=== PATIENT | female | born 1960 | race Caucasian/White ===

== ENCOUNTER 2019-04-01 11:11 | Outpatient (RCR) | payer OTHER, SELFPAY ==
[2019-01-10 16:58] LABS: INR 2.9; Prothrombin Time 29.7 Seconds (11.1-14.7)
[2019-01-21 11:27] LABS: INR 3.8; Prothrombin Time 36.6 Seconds (11.1-14.7)
[2019-02-18 11:39] LABS: INR 3.4; Prothrombin Time 33.5 Seconds (11.1-14.7)
[2019-03-04 10:17] LABS: Basophils Percent Auto 0.6 % (0.2-1.2); Eosinophils Absolute Auto 0.1 K/mm3 (0-0.3); Eosinophils Percent Auto 2.3 % (0-4.4); Hematocrit 40.5 % (37.0-47.0); Hemoglobin 13.4 g/dL (12.0-15.0); Immature Granulocyte Absolute 0.01 K/mm3 (0.00-0.031); Immature Granulocyte Percent A 0.2 % (0-0.5); Lymphocytes Absolute Auto 1.75 K/mm3 (0.9-3.2); Lymphocytes Percent Auto 33.5 % (18.3-44.2); Mean Corpuscular HGB Conc 33.1 g/dl (32-36); Mean Corpuscular Volume 87.7 fl (80-100); Mean Platelet Volume 10.4 fl (7.4-10.4); Monocytes Absolute Auto 0.6 K/mm3 (0.1-0.6); Monocytes Percent Auto 10.5 % (2.6-8.5); Neutrophils Absolute Auto 2.8 K/mm3 (1.3-6.7); Neutrophils Percent Auto 52.9 % (45.5-73.1); Platelet Count Result 195 k/mm3 (150-375); Red Blood Count 4.62 M/mm3 (4.2-5.4); Red Cell Distribution Width 12.9 % (11.5-14.5); White Blood Count 5.2 K/mm3 (4.5-10.0)
[2019-03-04 10:23] LABS: INR 1.6
[2019-03-04 10:30] LABS: Alanine Aminotransferase 45 U/L (4-35); Albumin Level 4.2 g/dL (3.5-5.1); Alkaline Phosphatase 60 U/L (38-126); Aspartate Amino Transferase 44 U/L (14-36); Bilirubin,Total 0.3 mg/dL (0.2-1.3); Blood Urea Nitrogen 14 mg/dL (7-17); Calcium 9.2 mg/dL (8.4-10.2); Carbon Dioxide 26 mmol/L (22-30); Chloride 102 mmol/L (98-107); Estimated Glomerular Filt Rate > 60; Glucose 121 mg/dL (65-105); Sodium 138 mmol/L (137-145)
[2019-03-04 11:01] LABS: Free T4 Free Thyroxine 0.95 ng/mL (0.78-2.19)
[2019-03-09 08:07] LABS: Basophils Percent Auto 0.5 % (0.2-1.2); Eosinophils Absolute Auto 0.1 K/mm3 (0-0.3); Eosinophils Percent Auto 1.7 % (0-4.4); Hematocrit 42.1 % (37.0-47.0); Hemoglobin 13.7 g/dL (12.0-15.0); Immature Granulocyte Absolute 0.02 K/mm3 (0.00-0.031); Immature Granulocyte Percent A 0.3 % (0-0.5); Lymphocytes Absolute Auto 1.56 K/mm3 (0.9-3.2); Lymphocytes Percent Auto 27.2 % (18.3-44.2); Mean Corpuscular HGB Conc 32.5 g/dl (32-36); Mean Platelet Volume 10.6 fl (7.4-10.4); Monocytes Absolute Auto 0.7 K/mm3 (0.1-0.6); Neutrophils Absolute Auto 3.3 K/mm3 (1.3-6.7); Neutrophils Percent Auto 58.3 % (45.5-73.1); Platelet Count Result 182 k/mm3 (150-375); Red Blood Count 4.73 M/mm3 (4.2-5.4); White Blood Count 5.7 K/mm3 (4.5-10.0)
[2019-03-09 08:22] LABS: Alanine Aminotransferase 52 U/L (4-35); Albumin Level 4.4 g/dL (3.5-5.1); Alkaline Phosphatase 67 U/L (38-126); Aspartate Amino Transferase 48 U/L (14-36); Bilirubin,Total 0.3 mg/dL (0.2-1.3); Blood Urea Nitrogen 15 mg/dL (7-17); Calcium 9.4 mg/dL (8.4-10.2); Carbon Dioxide 26 mmol/L (22-30); Chloride 103 mmol/L (98-107); Estimated Glomerular Filt Rate > 60; Glucose 99 mg/dL (65-105); Potassium 4.2 mmol/L (3.4-5.0); Sodium 137 mmol/L (137-145)
[2019-03-09 08:24] LABS: INR 3.6; Prothrombin Time 35.7 Seconds (11.1-14.7)
--- NOTE | ~2019-04-01 | XR_ITS ---
EXAMINATION: XR chest 2V 03/04/2019 10:06 INDICATION: Weight loss. Tobacco use. PROCEDURE: 2 view chest COMPARISON: 12/28/2012 FINDINGS: The lungs are clear. 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 The lungs are hyperinflated which is consistent with, but not diagnostic of chronic obstructive pulmonary disease. The cardiomediastinal silhouette is within normal limits. There are no pleural e ffusions. There is no pneumothorax suspected. IMPRESSION: 1: NO ACUTE CARDIOPULMONARY DISEASE. Reviewed, dictated and finalized at location A. [employer]
[2019-04-01 11:43] LABS: Alanine Aminotransferase 33 U/L (4-35); Aspartate Amino Transferase 38 U/L (14-36)
[2019-04-01 11:44] LABS: Prothrombin Time 30.5 Seconds (11.1-14.7)
== END 2019-04-10 23:59 | disposition home or self-care (01) ==
LOC: ANHLAB 11:11
PROVIDERS: PCP Internal Medicine Cardiovascular Disease; Visit Provider Internal Medicine Cardiovascular Disease
DX: Z51.81 Encounter for therapeutic drug level monitoring (principal); Z79.01 Long term (current) use of anticoagulants; Z95.2 Presence of prosthetic heart valve
CPT/HCPCS: 36415; 71046; 80053; 84439; 84443; 84450; 84460; 85025; 85610

== ENCOUNTER 2019-10-07 09:50 | Outpatient (RCR) | payer OTHER, SELFPAY ==
[2019-07-29 13:20] LABS: INR 4.1; Prothrombin Time 38.8 Seconds (11.1-14.7)
[2019-08-01 17:27] LABS: Prothrombin Time 58.3 Seconds (11.1-14.7)
[2019-08-01 18:17] LABS: INR 6.8
[2019-08-04 07:56] LABS: INR 1.4; Prothrombin Time 17.1 Seconds (11.1-14.7)
[2019-08-07 08:22] LABS: INR 1.8
[2019-08-10 08:05] LABS: Prothrombin Time 30.8 Seconds (11.1-14.7)
[2019-08-17 17:46] LABS: INR 3.9
[2019-08-28 08:44] LABS: Prothrombin Time 30.6 Seconds (11.1-14.7)
[2019-10-07 10:16] LABS: INR 3.6; Prothrombin Time 35.4 Seconds (11.1-14.7)
== END 2019-10-27 23:59 | disposition home or self-care (01) ==
LOC: ANHLAB 09:50
PROVIDERS: PCP Internal Medicine Cardiovascular Disease; Visit Provider Internal Medicine Cardiovascular Disease
DX: Z51.81 Encounter for therapeutic drug level monitoring (principal); Z95.2 Presence of prosthetic heart valve; Z79.01 Long term (current) use of anticoagulants
CPT/HCPCS: 36415; 85610

== ENCOUNTER 2019-10-28 10:11 | Outpatient (RCR) | payer OTHER, SELFPAY ==
[2019-10-28 10:40] LABS: INR 3.7
== END 2020-01-26 23:59 | disposition home or self-care (01) ==
LOC: ANHLAB 10:11
PROVIDERS: PCP Internal Medicine Cardiovascular Disease; Visit Provider Internal Medicine Cardiovascular Disease
DX: Z51.81 Encounter for therapeutic drug level monitoring (principal); Z95.2 Presence of prosthetic heart valve; Z79.01 Long term (current) use of anticoagulants
CPT/HCPCS: 36415; 85610

== ENCOUNTER 2020-05-11 11:29 | Outpatient (RCR) | payer OTHER, SELFPAY ==
[2020-02-19 15:47] LABS: INR 4.7; Prothrombin Time 44.8 Seconds (11.1-14.7)
[2020-02-26 08:12] LABS: INR 3.2; Prothrombin Time 33.2 Seconds (11.1-14.7)
[2020-03-23 12:13] LABS: INR 2.5; Prothrombin Time 27.5 Seconds (11.1-14.7)
[2020-05-11 12:51] LABS: INR 2.9; Prothrombin Time 31.2 Seconds (11.1-14.7)
== END 2020-05-19 23:59 | disposition home or self-care (01) ==
LOC: ANHLAB 11:29
PROVIDERS: Visit Provider Internal Medicine Cardiovascular Disease
DX: Z95.2 Presence of prosthetic heart valve (principal)
CPT/HCPCS: 36415; 85610

== ENCOUNTER 2020-09-20 09:32 | Outpatient (RCR) | payer OTHER, SELFPAY ==
[2020-06-22 11:22] LABS: INR 1.9; Prothrombin Time 22.2 Seconds (11.1-14.7)
[2020-06-26 07:52] LABS: INR 3.5; Prothrombin Time 35.9 Seconds (11.1-14.7)
[2020-07-13 11:17] LABS: INR 3.1; Prothrombin Time 32.2 Seconds (11.1-14.7)
[2020-08-12 16:25] LABS: INR 2.6; Prothrombin Time 28.4 Seconds (11.1-14.7)
[2020-08-31 10:44] LABS: Prothrombin Time 23.3 Seconds (11.1-14.7)
[2020-09-05 08:14] LABS: INR 3.5; Prothrombin Time 34.1 Seconds (11.1-14.7)
[2020-09-11 07:52] LABS: INR 4.8; Prothrombin Time 43.4 Seconds (11.1-14.7)
[2020-09-13 08:53] LABS: INR 2.8
[2020-09-20 10:00] LABS: INR 3.1; Prothrombin Time 31.4 Seconds (11.1-14.7)
== END 2020-09-20 23:59 | disposition home or self-care (01) ==
LOC: ANHLAB 09:32
PROVIDERS: Visit Provider Internal Medicine Cardiovascular Disease
DX: Z95.2 Presence of prosthetic heart valve (principal)
CPT/HCPCS: 36415; 85610

== ENCOUNTER 2020-11-02 09:08 | Outpatient (CLI) | payer OTHER, SELFPAY ==
[2020-11-02 09:45] LABS: INR 4.1; Prothrombin Time 38.3 Seconds (11.1-14.7)
== END 2020-11-02 09:09 | disposition home or self-care (01) ==
LOC: ANHLAB 09:10
PROVIDERS: Visit Provider Internal Medicine Cardiovascular Disease
DX: Z95.2 Presence of prosthetic heart valve (principal)
CPT/HCPCS: 36415; 85610

== ENCOUNTER 2021-02-07 07:25 | Outpatient (RCR) | payer SELFPAY ==
[2020-11-29 16:56] LABS: Prothrombin Time 37.9 Seconds (11.1-14.7)
[2020-12-06 08:15] LABS: INR 3.8; Prothrombin Time 36.3 Seconds (11.1-14.7)
[2020-12-14 11:26] LABS: INR 4.2; Prothrombin Time 38.9 Seconds (11.1-14.7)
[2021-01-04 08:46] LABS: INR 2.6; Prothrombin Time 27.5 Seconds (11.1-14.7)
[2021-01-22 14:41] LABS: INR 1.6; Prothrombin Time 18.4 Seconds (11.1-14.7)
[2021-01-24 07:49] LABS: INR 2.4; Prothrombin Time 25.7 Seconds (11.1-14.7)
[2021-01-27 09:01] LABS: INR 4.4; Prothrombin Time 40.4 Seconds (11.1-14.7)
[2021-01-31 10:09] LABS: INR 1.7; Prothrombin Time 19.2 Seconds (11.1-14.7)
[2021-02-03 07:40] LABS: INR 2.6; Prothrombin Time 27.1 Seconds (11.1-14.7)
[2021-02-07 08:29] LABS: INR 2.9; Prothrombin Time 29.3 Seconds (11.1-14.7)
== END 2021-02-27 23:59 | disposition home or self-care (01) ==
LOC: ANHLAB 07:25
PROVIDERS: Visit Provider Internal Medicine Cardiovascular Disease
DX: Z95.2 Presence of prosthetic heart valve (principal)
CPT/HCPCS: 36415; 85610

== ENCOUNTER 2021-03-25 10:12 | Outpatient (CLI) | payer OTHER, SELFPAY ==
--- NOTE | 2021-03-25 11:00 | NEURO_ITS ---
Impression: # Complains of numbness and pain. # Mild sensory neuropathy. # No Carpal Tunnel Syndrome or ulnar neuropathy. # Normal needle/EMG exam. # Clinical correlation recommended. Nerve Conduction Studies Anti Sensory Summary Table Stim Site NR Peak (ms) P-T Amp (?V) Site1 Site2 Delta-P (ms) Dist (cm) Huy (m/s) Left Median Anti Sensory (2-3nd Digit) Wrist 3.4 60.9 Wrist 2-3nd Digit 3.4 14.0 41 Wrist 3.4 45.1 Wrist 2-3nd Digit 3.4 14.0 41 Right Median Anti Sensory (2-3nd Digit) Wrist 3.3 68.4 Wrist 2-3nd Digit 3.3 14.0 42 Wrist 3.3 55.7 Wrist 2-3nd Digit 3.3 14.0 42 Left Radial Anti Sensory (Base 1st Digit) Wrist 1.9 28.1 Wrist Base 1st Digit 1.9 0.0 Right Radial Anti Sensory (Base 1st Digit) Wrist 2.2 36.5 Wrist Base 1st Digit 2.2 0.0 Left Ulnar Anti Sensory (5th Digit) Wrist 2.7 25.0 Wrist 5th Digit 2.7 14.0 52 Right Ulnar Anti Sensory (5th Digit) Wrist 2.4 49.6 Wrist 5th Digit 2.4 14.0 58 Motor Summary Table Stim Site NR Onset (ms) O-P Amp (mV) Site1 Site2 Delta-0 (ms) Dist (cm) Huy (m/s) Left Median Motor (Abd Poll Brev) Wrist 3.3 2.8 Elbow Wrist 4.6 26.0 57 Elbow 7.9 3.9 Right Median Motor (Abd Poll Brev) Wrist 3.0 4.5 Elbow Wrist 4.6 25.0 54 Elbow 7.6 4.8 Left Ulnar Motor (Abd Dig Minimi) Wrist 2.9 6.5 A Elbow Wrist 4.8 28.0 58 A Elbow 7.7 5.1 Right Ulnar Motor (Abd Dig Minimi) Wrist 2.7 5.7 A Elbow Wrist 4.6 26.0 57 A Elbow 7.3 5.3 F Wave Studies NR F-Lat (ms) L-R F-Lat (ms) Left Median (Mrkrs) (Abd Poll Brev) 25.23 0.38 Right Median (Mrkrs) (Abd Poll Brev) 25.61 0.38 Left Ulnar (Mrkrs) (Abd Dig Min) 25.18 0.30 Right Ulnar (Mrkrs) (Abd Dig Min) 24.88 0.30 EMG Side Muscle Nerve Root Ins Act Fibs Amp Dur Recrt Comment Right 1stDorInt Ulnar C8-T1 Nml Nml Nml Nml Nml Right Ext Indicis Radial (Post Int) C7-8 Nml Nml Nml Nml Nml Right Ext Digitorum Radial (Post Int) C7-8 Nml Nml Nml Nml Nml Right BrachioRad Radial C5-6 Nml Nml Nml Nml Nml Right PronatorTeres Median C6-7 Nml Nml Nml Nml Nml Right Abd Poll Brev Median C8-T1 Nml Nml Nml Nml Nml Left 1stDorInt Ulnar C8-T1 Nml Nml Nml Nml Nml Left Ext Indicis Radial (Post Int) C7-8 Nml Nml Nml Nml Nml Left Ext Digitorum Radial (Post Int) C7-8 Nml Nml Nml Nml Nml Left BrachioRad Radial C5-6 Nml Nml Nml Nml Nml Left PronatorTeres Median C6-7 Nml Nml Nml Nml Nml Left Abd Poll Brev Median C8-T1 Nml Nml Nml Nml Nml MTDD
== END 2021-03-25 10:13 | disposition home or self-care (01) ==
PROVIDERS: PCP Family Medicine; Visit Provider Family Medicine
DX: G56.00 Carpal tunnel syndrome, unspecified upper limb (principal); G62.9 Polyneuropathy, unspecified
CPT/HCPCS: 95886; 95911

== ENCOUNTER 2021-08-19 16:33 | Outpatient (RCR) | payer OTHER, SELFPAY ==
[2021-05-27 18:15] LABS: INR 2.7; Prothrombin Time 27.7 Seconds (11.1-14.7)
[2021-07-12 09:50] LABS: INR 3.6
[2021-08-19 18:13] LABS: INR 2.3; Prothrombin Time 24.7 Seconds (11.1-14.7)
== END 2021-08-25 23:59 | disposition home or self-care (01) ==
LOC: ANHLAB 16:33
PROVIDERS: PCP Family Medicine; Visit Provider Internal Medicine Cardiovascular Disease
DX: I38 Endocarditis, valve unspecified (principal)
CPT/HCPCS: 36415; 85610

== ENCOUNTER 2021-12-30 15:02 | Outpatient (RCR) | payer OTHER, SELFPAY ==
[2021-10-09 17:00] LABS: Prothrombin Time 30.5 Seconds (11.1-14.7)
[2021-12-20 10:06] LABS: INR 2.1; Prothrombin Time 22.6 Seconds (11.1-14.7)
[2021-12-30 15:55] LABS: INR 2.8; Prothrombin Time 28.3 Seconds (11.1-14.7)
== END 2022-01-07 23:59 | disposition home or self-care (01) ==
LOC: ANHLAB 15:02
PROVIDERS: PCP Family Medicine; Visit Provider Internal Medicine Cardiovascular Disease
DX: I38 Endocarditis, valve unspecified (principal)
CPT/HCPCS: 36415; 85610

== ENCOUNTER 2022-04-27 09:39 | Outpatient (CLI) | payer OTHER, SELFPAY ==
[2022-04-27 10:24] LABS: INR 1.6; Prothrombin Time 18.1 Seconds (11.1-14.7)
[2022-04-27 10:32] LABS: Alanine Aminotransferase 31 U/L (6-35); Albumin Level 4.4 g/dL (3.5-5.1); Alkaline Phosphatase 79 U/L (38-126); Anion Gap 3 mmol/L (8-16); Aspartate Amino Transferase 37 U/L (14-36); Bilirubin,Total 0.4 mg/dL (0.2-1.3); Blood Urea Nitrogen 14 mg/dL (7-17); Calcium 8.9 mg/dL (8.4-10.2); Carbon Dioxide 31 mmol/L (22-30); Chloride 103 mmol/L (98-107); Cholesterol 257 mg/dL (0-200); Estimated Glomerular Filt Rate > 60; Glucose 90 mg/dL (65-110); HDL Direct 43 mg/dL; Potassium 4.4 mmol/L (3.4-5.0); Sodium 137 mmol/L (137-145); Triglycerides 195 mg/dL (<150)
[2022-04-27 10:43] LABS: LDL Cholesterol Direct 140 mg/dL
== END 2022-04-27 09:40 | disposition home or self-care (01) ==
LOC: ANHLAB 09:40
PROVIDERS: PCP Family Medicine; Visit Provider Internal Medicine Cardiovascular Disease
DX: E78.5 Hyperlipidemia, unspecified (principal); Z95.2 Presence of prosthetic heart valve
CPT/HCPCS: 36415; 80053; 80061; 85610

== ENCOUNTER 2022-05-06 07:32 | Outpatient (CLI) | payer OTHER, SELFPAY ==
[2022-05-06 08:02] LABS: INR 2.1
== END 2022-05-06 07:33 | disposition home or self-care (01) ==
LOC: ANHLAB 07:33
PROVIDERS: PCP Family Medicine; Visit Provider Internal Medicine Cardiovascular Disease
DX: Z95.2 Presence of prosthetic heart valve (principal)
CPT/HCPCS: 36415; 85610

== ENCOUNTER 2022-05-19 13:55 | Outpatient (RCR) | payer OTHER, SELFPAY ==
[2022-02-21 10:07] LABS: INR 2.3; Prothrombin Time 24.6 Seconds (11.1-14.7)
== END 2022-05-22 23:59 | disposition home or self-care (01) ==
LOC: ANHLAB 13:55
PROVIDERS: PCP Family Medicine; Visit Provider Internal Medicine Cardiovascular Disease
DX: I38 Endocarditis, valve unspecified (principal)
CPT/HCPCS: 36415; 85610

== ENCOUNTER 2022-05-26 07:44 | Outpatient (CLI) | payer OTHER, SELFPAY ==
[2022-05-26 08:18] LABS: Alanine Aminotransferase 33 U/L (6-35); Albumin Level 4.5 g/dL (3.5-5.1); Alkaline Phosphatase 81 U/L (38-126); Anion Gap 5 mmol/L (8-16); Aspartate Amino Transferase 38 U/L (14-36); Bilirubin,Total 0.5 mg/dL (0.2-1.3); Blood Urea Nitrogen 18 mg/dL (7-17); Calcium 9.1 mg/dL (8.4-10.2); Carbon Dioxide 29 mmol/L (22-30); Chloride 107 mmol/L (98-107); Cholesterol 201 mg/dL (0-200); Estimated Glomerular Filt Rate > 60; Glucose 110 mg/dL (65-110); HDL Direct 53 mg/dL; Potassium 4.4 mmol/L (3.4-5.0); Sodium 141 mmol/L (137-145); Triglycerides 79 mg/dL (<150)
[2022-05-26 08:29] LABS: LDL Cholesterol Direct 108 mg/dL
== END 2022-05-26 07:45 | disposition home or self-care (01) ==
LOC: ANHLAB 07:45
PROVIDERS: PCP Family Medicine; Visit Provider Internal Medicine Cardiovascular Disease
DX: E78.5 Hyperlipidemia, unspecified (principal)
CPT/HCPCS: 36415; 80053; 80061

== ENCOUNTER 2022-07-25 08:36 | Outpatient (RCR) | payer OTHER, SELFPAY ==
[2022-06-13 10:08] LABS: INR 2.8; Prothrombin Time 28.6 Seconds (11.1-14.7)
[2022-07-25 09:11] LABS: INR 3.6; Prothrombin Time 39.1 Seconds (11.1-14.7)
== END 2022-08-17 23:59 | disposition home or self-care (01) ==
LOC: ANHLAB 08:36
PROVIDERS: PCP Family Medicine; Visit Provider Internal Medicine Cardiovascular Disease
DX: Z51.81 Encounter for therapeutic drug level monitoring (principal); Z79.01 Long term (current) use of anticoagulants
CPT/HCPCS: 36415; 85610

== ENCOUNTER 2022-11-07 09:13 | Outpatient (RCR) | payer OTHER, SELFPAY ==
[2022-08-22 09:18] LABS: INR 3.6; Prothrombin Time 38.9 Seconds (11.1-14.7)
[2022-09-05 09:31] LABS: INR 1.6; Prothrombin Time 20.4 Seconds (11.1-14.7)
[2022-09-12 09:05] LABS: INR 2.4; Prothrombin Time 27.7 Seconds (11.1-14.7)
[2022-09-19 10:12] LABS: INR 2.8; Prothrombin Time 31.6 Seconds (11.1-14.7)
[2022-10-03 09:41] LABS: INR 3.6; Prothrombin Time 38.8 Seconds (11.1-14.7)
[2022-10-17 09:14] LABS: INR 3.5; Prothrombin Time 38.3 Seconds (11.1-14.7)
[2022-11-07 10:20] LABS: INR 4.1; Prothrombin Time 42.9 Seconds (11.1-14.7)
== END 2022-11-20 23:59 | disposition home or self-care (01) ==
LOC: ANHLAB 09:13
PROVIDERS: PCP Family Medicine; Visit Provider Internal Medicine Cardiovascular Disease
DX: Z51.81 Encounter for therapeutic drug level monitoring (principal); Z79.01 Long term (current) use of anticoagulants
CPT/HCPCS: 36415; 85610

== ENCOUNTER 2022-12-08 15:32 | Outpatient (CLI) | payer OTHER, SELFPAY ==
--- NOTE | 2022-12-08 15:37 | ECHO_ITS ---
Patient Info Name: Sada Feliz Age: 62 years : 1960 Gender: Female Ht: 64 in Wt: 100 lbs BSA: 1.42 m2 HR: 65 bpm BP: 103 / 83 mmHg Heart Rhythm: Sinus Rhythm Technical Quality: Good Exam Date: 12/08/2022 3:41 PM Exam Location: [facility] Patient Status: Outpatient Admit Date: 12/08/2022 Staff Ordering Physician: Dalton Prado DO [employer] Operator: Daniel York RDCS Attending Provider: Dalton Prado DO Referring Physician: Johan RUBIN; Exam Type: CA echo doppler color flow Study Info Indications - presence of prosthatic heart valve Complete two-dimensional, color flow and Doppler transthoracic echocardiogram is performed. Summary 1. Complete two-dimensional, color flow and Doppler transthoracic echocardiogram is performed. 2. Left ventricular chamber dimension is normal. 3. Left ventricular systolic function is normal, estimated at 65-70%. 4. The left ventricular diastolic function is abnormal. 5. E/e' 26 is elevated. 6. There is mild aortic valve sclerosis. 7. There is trace aortic valve regurgitation. 8. Statistical Programmer mitral valve is not well seen. 9. There is no stenosis of the mechanical mitral valve based on no transvalvular turbulent flow. Gradients, velocity and valve area were not assessed. 10. There is trace regurgitation of the mechanical mitral valve. 11. There is trace tricuspid valve regurgitation. 12. No pulmonary hypertension, estimated pulmonary arterial systolic pressure is 23 mmHg. 13. There is trace pulmonic regurgitation. Left Ventricle E/e' 26 is elevated. Left ventricular chamber dimension is normal. Left ventricular systolic function is normal, estimated at 65-70%. The left ventricular diastolic function is abnormal. Right Ventricle Right ventricular chamber dimension is normal. Right ventricular systolic function is normal and with normal TAPSE 3.5 cm. Left Atria Left atrial chamber dimension is normal. Right Atria Right atrial chamber dimension is normal. Aortic Valve The aortic valve is trileaflet. There is mild aortic valve sclerosis. There is no aortic valve stenosis. There is trace aortic valve regurgitation. Pulmonic Valve There is trace pulmonic regurgitation. Mitral Valve There is no stenosis of the mechanical mitral valve based on no transvalvular turbulent flow. Gradients, velocity and valve area were not assessed. There is trace regurgitation of the mechanical mitral valve. Statistical Programmer mitral valve is not well seen. Tricuspid Valve There is trace tricuspid valve regurgitation. No pulmonary hypertension, estimated pulmonary arterial systolic pressure is 23 mmHg. Pericardium/Pleural There is no pericardial effusion. Inferior Vena Cava Normal inferior vena cava with >50% collapse upon inspiration consistent with normal right atrial pressure, 5 mmHg. Aorta The aortic root size at the sinus of Valsalva is normal. Left Ventricular Outflow Tract Name Value Normal LVOT 2D LVOT Diameter 1.9 cm LVOT Doppler LVOT Peak Gradient 6 mmHg LVOT Mean Gradient 3 mmHg LVOT VTI 33 cm LVOT VTI/AV VTI Ratio 0.8 LVOT
== END 2022-12-08 15:33 | disposition home or self-care (01) ==
LOC: ANHCARD 15:33
PROVIDERS: PCP Family Medicine; Visit Provider Internal Medicine Cardiovascular Disease
DX: I35.8 Other nonrheumatic aortic valve disorders (principal); I35.1 Nonrheumatic aortic (valve) insufficiency; I34.0 Nonrheumatic mitral (valve) insufficiency; I07.1 Rheumatic tricuspid insufficiency; I37.1 Nonrheumatic pulmonary valve insufficiency; R93.1 Abnormal findings on diagnostic imaging of heart and coronary circulation; Z95.2 Presence of prosthetic heart valve
CPT/HCPCS: 93306

== ENCOUNTER 2023-01-29 10:45 | Outpatient (RCR) | payer OTHER, SELFPAY ==
[2022-11-21 09:24] LABS: INR 3.7
[2022-12-12 09:12] LABS: INR 3.9; Prothrombin Time 41.7 Seconds (11.1-14.7)
[2023-01-02 09:00] LABS: INR 3.2; Prothrombin Time 34.8 Seconds (11.1-14.7)
[2023-01-29 11:17] LABS: INR 2.5; Prothrombin Time 29.2 Seconds (11.1-14.7)
== END 2023-02-19 23:59 | disposition home or self-care (01) ==
LOC: ANHLAB 10:45
PROVIDERS: PCP Family Medicine; Visit Provider Internal Medicine Cardiovascular Disease
DX: Z51.81 Encounter for therapeutic drug level monitoring (principal); Z79.01 Long term (current) use of anticoagulants
CPT/HCPCS: 36415; 85610

== ENCOUNTER 2023-05-29 10:15 | Outpatient (RCR) | payer OTHER, SELFPAY ==
[2023-03-06 10:10] LABS: INR 3.8; Prothrombin Time 41.2 Seconds (11.1-14.7)
[2023-04-17 10:07] LABS: INR 4.4; Prothrombin Time 46.4 Seconds (11.1-14.7)
[2023-05-29 11:31] LABS: INR 3.4; Prothrombin Time 37.1 Seconds (11.1-14.7)
== END 2023-06-04 23:59 | disposition home or self-care (01) ==
LOC: ANHLAB 10:15
PROVIDERS: PCP Family Medicine; Visit Provider Internal Medicine Cardiovascular Disease
DX: Z51.81 Encounter for therapeutic drug level monitoring (principal); Z79.01 Long term (current) use of anticoagulants
CPT/HCPCS: 36415; 85610

== ENCOUNTER 2023-05-29 10:16 | Outpatient (CLI) | payer OTHER, SELFPAY ==
[2023-05-29 11:32] LABS: Alanine Aminotransferase 21 U/L (6-35); Alkaline Phosphatase 71 U/L (38-126); Anion Gap 2 mmol/L (8-16); Aspartate Amino Transferase 31 U/L (14-36); Bilirubin,Total 0.5 mg/dL (0.2-1.3); Blood Urea Nitrogen 13 mg/dL (7-17); Calcium 9.1 mg/dL (8.4-10.2); Carbon Dioxide 30 mmol/L (22-30); Chloride 109 mmol/L (98-107); Cholesterol 166 mg/dL (0-200); Estimated Glomerular Filt Rate > 60; Glucose 91 mg/dL (65-110); HDL Direct 47 mg/dL; Potassium 3.9 mmol/L (3.4-5.0); Sodium 141 mmol/L (137-145); Triglycerides 83 mg/dL (<150)
[2023-05-29 11:42] LABS: LDL Cholesterol Direct 106 mg/dL
== END 2023-05-29 10:17 | disposition home or self-care (01) ==
LOC: ANHLAB 10:17
PROVIDERS: PCP Family Medicine; Visit Provider Internal Medicine Cardiovascular Disease
DX: E78.5 Hyperlipidemia, unspecified (principal)
CPT/HCPCS: 36415; 80053; 80061; 85610

== ENCOUNTER 2023-09-04 09:22 | Outpatient (RCR) | payer OTHER, SELFPAY ==
[2023-07-03 09:20] LABS: INR 1.9; Prothrombin Time 23.4 Seconds (11.1-14.7)
[2023-07-10 08:13] LABS: INR 2.8; Prothrombin Time 31.6 Seconds (11.1-14.7)
[2023-07-27 10:01] LABS: INR 2.3; Prothrombin Time 27.2 Seconds (11.1-14.7)
[2023-08-14 09:47] LABS: INR 3.3; Prothrombin Time 34.7 Seconds (11.1-14.7)
[2023-09-04 09:48] LABS: INR 3.1; Prothrombin Time 32.2 Seconds (11.1-14.7)
== END 2023-10-01 23:59 | disposition home or self-care (01) ==
LOC: ANHLAB 09:22
PROVIDERS: PCP Family Medicine; Visit Provider Internal Medicine Cardiovascular Disease
DX: Z95.2 Presence of prosthetic heart valve (principal)
CPT/HCPCS: 36415; 85610

== ENCOUNTER 2023-11-27 08:27 | Outpatient (RCR) | payer OTHER, SELFPAY ==
[2023-10-02 09:13] LABS: INR 2.4; Prothrombin Time 26.4 Seconds (11.1-14.7)
[2023-11-27 09:39] LABS: INR 1.3; Prothrombin Time 16.3 Seconds (11.1-14.7)
== END 2023-12-31 23:59 | disposition home or self-care (01) ==
LOC: ANHLAB 08:27
PROVIDERS: PCP Family Medicine; Visit Provider Internal Medicine Cardiovascular Disease
DX: Z95.2 Presence of prosthetic heart valve (principal)
CPT/HCPCS: 36415; 85610

== ENCOUNTER 2024-02-26 09:12 | Outpatient (RCR) | payer OTHER, SELFPAY ==
[2024-01-08 12:40] LABS: INR 3.1; Prothrombin Time 32.2 Seconds (11.1-14.7)
[2024-02-26 10:01] LABS: INR 3.1; Prothrombin Time 32.9 Seconds (11.1-14.7)
== END 2024-04-07 23:59 | disposition home or self-care (01) ==
LOC: ANHLAB 09:12
PROVIDERS: PCP Family Medicine; Visit Provider Internal Medicine Cardiovascular Disease
DX: Z95.2 Presence of prosthetic heart valve (principal)
CPT/HCPCS: 36415; 85610

== ENCOUNTER 2024-05-06 08:35 | Outpatient (CLI) | payer OTHER, SELFPAY ==
[2024-05-06 09:07] LABS: Alanine Aminotransferase 38 U/L (6-35); Alkaline Phosphatase 72 U/L (38-126); Anion Gap 9 mmol/L (4-12); Aspartate Amino Transferase 42 U/L (14-36); Bilirubin,Total 0.5 mg/dL (0.2-1.3); Blood Urea Nitrogen 11 mg/dL (7-17); Calcium 9.1 mg/dL (8.4-10.2); Carbon Dioxide 28 mmol/L (22-30); Chloride 105 mmol/L (98-107); Cholesterol 226 mg/dL (0-200); Estimated Glomerular Filt Rate > 60; Glucose 95 mg/dL (65-110); HDL Direct 51 mg/dL; Potassium 4.1 mmol/L (3.4-5.0); Sodium 142 mmol/L (137-145); Triglycerides 98 mg/dL (<150)
[2024-05-06 09:18] LABS: LDL Cholesterol Direct 124 mg/dL
== END 2024-05-06 08:36 | disposition home or self-care (01) ==
LOC: ANHLAB 08:43
PROVIDERS: PCP Family Medicine; Visit Provider Internal Medicine Cardiovascular Disease
DX: E78.5 Hyperlipidemia, unspecified (principal)
CPT/HCPCS: 36415; 80053; 80061

== ENCOUNTER 2024-07-08 08:14 | Outpatient (RCR) | payer OTHER, SELFPAY ==
[2024-04-08 12:39] LABS: INR 3.8; Prothrombin Time 38.2 Seconds (11.1-14.7)
[2024-05-06 09:06] LABS: Prothrombin Time 23.6 Seconds (11.1-14.7)
[2024-06-24 10:29] LABS: INR 2.4; Prothrombin Time 26.8 Seconds (11.1-14.7)
[2024-07-08 09:59] LABS: Prothrombin Time 22.8 Seconds (11.1-14.7)
== END 2024-07-08 23:59 | disposition home or self-care (01) ==
LOC: ANHLAB 08:14
PROVIDERS: PCP Family Medicine; Visit Provider Internal Medicine Cardiovascular Disease
DX: Z95.2 Presence of prosthetic heart valve (principal)
CPT/HCPCS: 36415; 85610

== ENCOUNTER 2024-09-02 13:17 | Outpatient (RCR) | payer OTHER, SELFPAY ==
[2024-07-22 08:09] LABS: INR 2.3; Prothrombin Time 25.4 Seconds (11.1-14.7)
[2024-08-04 15:36] LABS: INR 3.6; Prothrombin Time 36.2 Seconds (11.1-14.7)
[2024-08-19 09:06] LABS: INR 3.4; Prothrombin Time 33.1 Seconds (11.1-14.7)
[2024-09-02 14:08] LABS: INR 2.8; Prothrombin Time 28.5 Seconds (11.1-14.7)
== END 2024-10-20 23:59 | disposition home or self-care (01) ==
LOC: ANHLAB 13:17
PROVIDERS: PCP Family Medicine; Visit Provider Internal Medicine Cardiovascular Disease
DX: Z95.2 Presence of prosthetic heart valve (principal)
CPT/HCPCS: 36415; 85610